=== PATIENT | female | born 1950 | race Caucasian/White ===

== ENCOUNTER 2023-10-27 11:10 | Outpatient (CLI) | payer OTHER, SELFPAY | END 2023-10-27 11:11 | disposition home or self-care (01) | PROVIDERS: PCP Family Medicine; Visit Provider Family Medicine | DX: E10.9 Type 1 diabetes mellitus without complications (principal); Z13.29 Encounter for screening for other suspected endocrine disorder; M54.2 Cervicalgia; Z13.21 Encounter for screening for nutritional disorder | CPT/HCPCS: 82306; 82607; 84443; 84681 ==

== ENCOUNTER 2023-12-14 09:22 | Outpatient (CLI) | payer MEDICARE, BC, SELFPAY | END 2023-12-14 09:23 | disposition home or self-care (01) | LOC: AMB 12-15 13:59 | PROVIDERS: PCP Family Medicine; Visit Provider Family Medicine | DX: E11.649 Type 2 diabetes mellitus with hypoglycemia without coma (principal); R42 Dizziness and giddiness | CPT/HCPCS: A0425; A0427 ==

== ENCOUNTER 2023-12-14 10:23 | Emergency (ER) | payer MEDICARE, BC, SELFPAY ==
[2023-12-14] VITALS (24 sets, daily range): BP systolic 93–113; BP diastolic 53–77; PULSE 64–81; RESP 18; TEMP 35.5; O2SAT 78–100; BMI 19.3
--- NOTE | 2023-12-14 10:41 | ED_ITS ---
HPI - General Adult General Date Seen: 12/14/23 Chief complaint: Diabetic Related Problem Stated complaint: Diabetic complications Time Seen by Provider: 12/14/23 10:25 Source: patient, EMS, RN notes reviewed and old records reviewed Mode of arrival: EMS Limitations: no limitations History of Present Illness HPI narrative: Is a 73-year-old whose family called EMS because she was feeling lightheaded. She does have a fairly new diagnosis of diabetes, takes Lantus in the morning and then has a p.r.n. 1-2 units of regular insulin with meals, according to review of her records. This morning she was making her oatmeal and she says she started to feel lightheaded and dizzy. Her blood sugar that time was noted to be normal at around 90 both by paramedics and by her home machine. Family called 911 immediately, they did not give her anything to drink or eat. Paramedics gave her some juice. They also noted on their arrival that her blood pressure was 53/33. This came up by the time that she was here 299 systolic, it was in the 90s for the bulk of the time in the ambulance although for the 1st 10 minutes that they were with her she has blood pressures from 53/33 to 62/43 to 65/43. She was not ever tachycardic. I do not have a rhythm strip from the ambulance but there are no reported arrhythmias. They did start D10 EN route but then stopped it when her blood sugar was 160. Patient is feeling better she says at this time. She notes that her blood pressure typically runs normal to slightly low, she does not take any blood pressure medications. She specifically denies pain such as headache, chest pain, abdominal or back pain. She denies cough or difficulty breathing, fevers, recent vomiting or diarrhea, black or bloody stools. She is under some stress at home she is taking care of her who is in hospice. Related Data Home Medications Medication Instructions Recorded Confirmed [id number] ac 400 tab PO 08/05/23 10/27/23 mcg-calcium carb 500 mg-vit K1 20 mcg tablet (Women's 50 Plus Multivitamin) Previous Rx's Medication Instructions Recorded blood-glucose meter,continuous #1 ea 08/06/23 (Dexcom G7 Drapery Cutter) insulin aspart U-100 100 unit/mL 1 - 2 unit (0.01 - 0.02 mL) subcut 11/28/23 (3 mL) subcutaneous pen (Novolog TIDWMEAL PRN Type 1 diabetes #15 mL FlexPen U-100 Insulin aspart) insulin glargine 100 unit/mL (3 6 unit (0.06 mL) subcut QAM #15 mL 10/20/23 mL) subcutaneous pen (Lantus Solostar U-100 Insulin) lancets (Accu-Chek Softclix #200 ea 10/27/23 Lancets) blood-glucose sensor (Dexcom G7 #1 ea 11/26/23 Sensor device) pen needle, diabetic 31 gauge x #100 ea 11/26/23 3/16 (BD Ultra-Fine Mini Pen Needle) Allergies Allergy/AdvReac Type Severity Reaction Status Date / Time No Known Drug Allergies Allergy Verified 10/27/23 10:44 Review of Systems Status of ROS: Reports: 10 or more systems reviewed and unremarkable except as noted in History and below PFSH PFS Surgical History Status post bunionectomy ?Z98.890 - Other specified postprocedural states (ICD-10) Status post open reduction and internal fixation (ORIF) of fracture ?Z98.890 - Other specified postprocedural states (ICD-10) ?Z87.81 - Personal history of (healed) traumatic fracture (ICD-10) Social History What is your current living situation?: declined to answer Problems where you live: declined to answer In the past 12 months, utilities in danger of being shut off: declined to answer In past 12 months, lack of transportation kept you from medical appts, meetings, work, or getting things needed for daily living: declined to answer In the past 12 mos, have been you worried that your food would run out before you had money to buy more?: declined to answer In the past 12 mos, the food you bought just didn't last and you didn't have money to buy more?: declined to answer Smoking Status: Never smoker How often does anyone, including family, friends and others, physically hurt you : decline to answer How often does anyone, including family, friends and others, insult or talk down to you: decline to answer How often does anyone, including family, friends and others, threaten you with harm: decline to answer How often does anyone, including family, friends and others, scream or curse at you: decline to answer Exam Narrative: Exam Narrative: Vital signs as noted above. In general, an alert, well-appearing patient. She looks fatigued. Head: Normocephalic, atraumatic. Eyes: Pupils are equal reactive. Extraocular movements are full. Conjunctivae are normal. ENT: Mucous membranes are moist. Throat is normal. Neck: Supple without lymphadenopathy. Heart: Regular rate and rhythm. No murmur or rub. Lungs: Clear bilaterally. No increased work of breathing, crackles or wheezes. Abdomen: Soft and nontender. No organomegaly. Extremities: Well perfused. No edema. No calf tenderness. Pulses intact. Neurologic: Patient is alert and oriented to person and place. Speech is fluent. Face is symmetric. Moves all extremities equally. Affect: Normal. Skin: Warm and dry. Well perfused. Const: Vital Signs, click to edit/add: Vital Signs - 24 hr 12/14/23 10:27 12/14/23 10:30 12/14/23 10:31 Temperature 96 F L Pulse Rate 66 66 Pulse Rate [Pulse Oximeter] 66 Respiratory Rate 18 Blood Pressure 99/64 Blood Pressure [Ri ght Upper Arm] 99/64 Blood Pressure [or thostatic sitting] Blood Pressure [or thostatic standing ] Pulse Oximetry 100 100 [facility] 12/14/23 10:41 12/14/23 10:45 12/14/23 11:00 Temperature Pulse Rate 64 68 72 Pulse Rate [Pulse Oximeter] Respiratory Rate Blood Pressure 100/58 L Blood Pressure [Ri ght Upper Arm] Blood Pressure [or thostatic sitting] Blood Pressure [or thostatic standing ] Pulse Oximetry 100 100 100 [facility] 12/14/23 11:02 12/14/23 11:02 12/14/23 11:03 Temperature Pulse Rate 68 70 Pulse Rate [Pulse Oximeter] Respiratory Rate Blood Pressure 93/53 L Blood Pressure [Ri ght Upper Arm] Blood Pressure [or thostatic sitting] Blood Pressure [or thostatic standing ] Pulse Oximetry 97 100 100 [facility] 12/14/23 11:15 12/14/23 11:21 12/14/23 11:22 Temperature Pulse Rate 70 67 71 Pulse Rate [Pulse Oximeter] Respiratory Rate Blood Pressure 104/62 Blood Pressure [Ri ght Upper Arm] Blood Pressure [or thostatic sitting] Blood Pressure [or thostatic standing ] Pulse Oximetry 100 100 100 [facility] 12/14/23 11:30 12/14/23 11:44 12/14/23 11:45 Temperature Pulse Rate 77 78 79 Pulse Rate [Pulse Oximeter] Respiratory Rate Blood Pressure 113/63 Blood Pressure [Ri ght Upper Arm] Blood Pressure [or thostatic sitting] Blood Pressure [or thostatic standing ] Pulse Oximetry 100 100 99 [facility] 12/14/23 12:00 12/14/23 12:02 12/14/23 12:15 Temperature Pulse Rate 80 81 Pulse Rate [Pulse Oximeter] Respiratory Rate Blood Pressure 93/77 Blood Pressure [Ri ght Upper Arm] Blood Pressure [or thostatic sitting] Blood Pressure [or thostatic standing ] Pulse Oximetry 78 L 100 100 Oxygen Delivery [facility] 12/14/23 12:21 12/14/23 12:30 12/14/23 12:41 Temperature Pulse Rate 79 76 74 Pulse Rate [Pulse Oximeter] Respiratory Rate Blood Pressure 96/57 L 108/63 Blood Pressure [Ri ght Upper Arm] Blood Pressure [or thostatic sitting] Blood Pressure [or thostatic standing ] Pulse Oximetry 100 98 99 Oxygen Delivery [facility] 12/14/23 12:45 12/14/23 13:00 12/14/23 13:01 Temperature Pulse Rate 76 72 74 Pulse Rate [Pulse Oximeter] Respiratory Rate Blood Pressure 100/54 L Blood Pressure [Ri ght Upper Arm] Blood Pressure [or thostatic sitting] Blood Pressure [or thostatic standing ] Pulse Oximetry 96 100 100 [facility] 12/14/23 13:32 Temperature Pulse Rate Pulse Rate [Pulse Oximeter] Respiratory Rate Blood Pressure Blood Pressure [Ri ght Upper Arm] Blood Pressure [or thostatic sitting] 108/56 L Blood Pressure [or thostatic standing ] 96/58 L Pulse Oximetry [facility] Course Course ED Course: Patient presents with lightheadedness without syncope in the setting of significantly low blood pressures initially. These have largely improved without treatment. Diagnostic considerations include infection or sepsis, arrhythmia, anemia, vasovagal spell, among others. EKG and labs pending at this time. Will give a L of normal saline and have her eat some breakfast although I do not believe any of this is related to hypoglycemia. Patient had a total of 2 L of normal saline, blood pressure improved to about 110 systolic. Orthostatics were negative, after fluids. She was ambulatory to the bathroom without difficulty. Labs are notable for a mildly depressed white blood cell count of 4 with a normal diff. Hemoglobin is 13.4. An EKG showed a normal sinus rhythm with a ventricular rate of 69. No acute ST segment changes. Corrected QT is 456 milliseconds. NM is normal. A troponin was negative. Other labs most notable for a lactate initially of 4.2. Her metabolic panel was unremarkable, sodium was mildly low at 131. Blood sugar was 195. LFTs notable for a bilirubin of 2 but otherwise entirely normal, CRP was less than 0.5. Urinalysis was negative aside from trace glucose. No ketones. COVID, influenza and RSV are negative. At this time, I have episode of lightheadedness associated with low blood pressures which has resolved. Lactate is elevated but there are no other markers for infection including absence of symptoms, fever, elevated white blood cell count, tachycardia etcetera. She does note that she is under significant stress, feels she is likely dehydrated. There is no evidence of ketoacidosis. I do not have evidence of cardiac arrhythmia or other signs of cardiogenic shock. At this time she is feeling well, blood pressure is normal. I think for now it is reasonable to send her home. Blood cultures have been sent. Advised her that if she is feeling worse in any way, develops fevers, chills, further lightheadedness or fainting, or any other symptoms of infection, she should return to the emergency department for re-evaluation right away. Otherwise will have her follow up with primary care. Vital Signs Vital signs: Initial Vital Signs Temperature 96 F L 12/14/23 10:27 Temperature Source Temporal Artery Scan 12/14/23 10:27 Pulse Rate 66 12/14/23 10:27 Respiratory Rate 18 12/14/23 10:27 Blood Pressure 99/64 12/14/23 10:27 Blood Pressure Mean 75 12/14/23 10:27 Blood Pressure Position Supine 12/14/23 10:27 Pulse Oximetry 100 12/14/23 10:27 Oxygen Delivery Method Room Air 12/14/23 10:27 Vital Signs Temperature 96 F L 12/14/23 10:27 Pulse Rate 66 12/14/23 10:27 Respiratory Rate 18 12/14/23 10:27 Blood Pressure 99/64 12/14/23 10:27 Pulse Oximetry 100 12/14/23 10:27 Oxygen Delivery Method Room Air 12/14/23 10:27 Temperature 96 F L 12/14/23 10:27 Pulse Rate 74 12/14/23 13:01 Respiratory Rate 18 12/14/23 10:27 Blood Pressure 108/56 L 12/14/23 13:32 Pulse Oximetry 100 12/14/23 13:01 Oxygen Delivery Method Room Air 12/14/23 10:27 Medications Administered Medications: Discontinued Medications Generic Name Dose Route Start Last Admin Trade Name Freq PRN Reason Stop Dose Admin Sodium Chloride 1,000 mls @ 1,000 mls/hr 12/14/23 10:45 12/14/23 11:37 0.9 % Sodium Chloride 1000 Ml IV 12/14/23 11:44 Infused .Q1H AMANDA Infusion Sodium Chloride 1,000 mls @ 1,000 mls/hr 12/14/23 11:15 12/14/23 12:21 0.9 % Sodium Chloride 1000 Ml IV 12/14/23 12:14 Infused .Q1H AMANDA Infusion Medical Decision Making Lab Data Labs: Lab Results 12/14/23 12/14/23 12/14/23 Range/Units 10:50 11:25 12:13 WBC 4.05 L (4.50-11.00) K/uL RBC 4.48 (4.00-5.20) m/uL Hgb 13.4 (12.0-16.0) gm/dL Hct 41.2 (33.0-51.0) % MCV 92 (80-100) fL MCH 30 (26-34) pg MCHC 33 (32-36) gm/dL RDW Coeff of Carlita 13.0 (11.5-15.5) % Plt Count 176 (140-440) K/uL Neut % (Auto) 62.8 (42.0-72.0) % Lymph % (Auto) 28.1 (20-44) % [place] % (Auto) 7.7 (0.0-11.0) % Eos % (Auto) 0.7 (0.0-7.0) % Baso % (Auto) 0.7 (0.0-3.0) % Neut # (Auto) 2.50 (1.7-7.0) K/uL Lymph # (Auto) 1.10 (0.90-2.90) K/uL [place] # (Auto) 0.30 (0.00-0.90) K/UL Eos # (Auto) 0.00 (0.00-0.50) K/uL Baso # (Auto) 0.00 (0.00-0.30) K/uL Abs Immat Gran (auto) 0.00 (0.00-0.30) K/uL Imm/Tot Granulo (auto) 0.0 % Sodium 131 L (135-149) mmol/L Potassium 4.2 (3.6-5.1) mmol/L Chloride 99 (96-114) mmol/L Carbon Dioxide 21 (20-32) mmol/L Anion Gap 11 (7-15) mEq/L BUN 7 (7-30) mg/dL Creatinine 0.6 (0.5-1.5) mg/dL Estimated Creat Clear 40.27 Estimated GFR 96 ml/min Glucose 195 H (60-115) mg/dL Lactate 4.2 H* (0.5-1.9) mmol/L Calcium 9.0 (8.4-10.6) mg/dL Total Bilirubin 2.0 H (0.1-1.5) mg/dL Direct Bilirubin 0.0 (0.0-0.5) mg/dL AST 35 (12-35) U/L ALT 28 (4-35) U/L Alkaline Phosphatase 50 (40-150) U/L C-Reactive Protein < 0.5 L (0.5-1.0) mg/dL Total Protein 7.0 (6.0-8.3) g/dL Albumin 4.2 (3.3-5.0) g/dL Urine Color Yellow (Yellow) Urine Appearance Clear (Clear) Urine pH 7.5 (5.0-8.5) Ur Specific [place] 1.015 (1.000-1.030) Urine Protein Negative (Negative) Urine Glucose (UA) Trace A (Negative) Urine Ketones Negative (Negative) Urine Blood Negative (Negative) Urine Nitrite Negative (Negative) Urine Bilirubin Negative (Negative) Urine Urobilinogen 0.2 (0.2-1.0) Ur Leukocyte Esterase Negative (Negative) Urine RBC 0-2 (0-2) Urine WBC 0-2 (0-5) Ur Squamous Epith Cells Few (None-Few) Urine Bacteria None (None) SARS-CoV-2 (PCR) Negative SARS-CoV-2 (Negative) Influenza Type A (PCR) Negative PCR FLU A (Negative) Influenza Type B (PCR) Negative PCR FLU B (Negative) RSV (PCR) Negative PCR RSV (Negative) POC Troponin I 0.00 L (0.01-0.04) ng/ml 12/14/23 Range/Units 12:58 WBC (4.50-11.00) K/uL RBC (4.00-5.20) m/uL Hgb (12.0-16.0) gm/dL Hct (33.0-51.0) % MCV (80-100) fL MCH (26-34) pg MCHC (32-36) gm/dL RDW Coeff of Carlita (11.5-15.5) % Plt Count (140-440) K/uL Neut % (Auto) (42.0-72.0) % Lymph % (Auto) (20-44) % [place] % (Auto) (0.0-11.0) % Eos % (Auto) (0.0-7.0) % Baso % (Auto) (0.0-3.0) % Neut # (Auto) (1.7-7.0) K/uL Lymph # (Auto) (0.90-2.90) K/uL [place] # (Auto) (0.00-0.90) K/UL Eos # (Auto) (0.00-0.50) K/uL Baso # (Auto) (0.00-0.30) K/uL Abs Immat Gran (auto) (0.00-0.30) K/uL Imm/Tot Granulo (auto) % Sodium (135-149) mmol/L Potassium (3.6-5.1) mmol/L Chloride (96-114) mmol/L Carbon Dioxide (20-32) mmol/L Anion Gap (7-15) mEq/L BUN (7-30) mg/dL Creatinine (0.5-1.5) mg/dL Estimated Creat Clear Estimated GFR ml/min Glucose (60-115) mg/dL Lactate 2.8 H (0.5-1.9) mmol/L Calcium (8.4-10.6) mg/dL Total Bilirubin (0.1-1.5) mg/dL Direct Bilirubin (0.0-0.5) mg/dL AST (12-35) U/L ALT (4-35) U/L Alkaline Phosphatase (40-150) U/L C-Reactive Protein (0.5-1.0) mg/dL Total Protein (6.0-8.3) g/dL Albumin (3.3-5.0) g/dL Urine Color (Yellow) Urine Appearance (Clear) Urine pH (5.0-8.5) Ur Specific [place] (1.000-1.030) Urine Protein (Negative) Urine Glucose (UA) (Negative) Urine Ketones (Negative) Urine Blood (Negative) Urine Nitrite (Negative) Urine Bilirubin (Negative) Urine Urobilinogen (0.2-1.0) Ur Leukocyte Esterase (Negative) Urine RBC (0-2) Urine WBC (0-5) Ur Squamous Epith Cells (None-Few) Urine Bacteria (None) SARS-CoV-2 (PCR) (Negative) Influenza Type A (PCR) (Negative) Influenza Type B (PCR) (Negative) RSV (PCR) (Negative) POC Troponin I (0.01-0.04) ng/ml Discharge Plan Discharge Clinical Impression: Hypotension Patient Disposition: Home, Self-Care Condition: Improved Instructions: Lightheadedness (ED) Additional Instructions: For any new symptoms such as fever, cough, difficulty breathing, vomiting, further lightheadedness, fainting etcetera, return to the emergency department for re-evaluation at any time. See your primary doctor in the next week for recheck. Prescriptions: No Action Women's 50 Plus Multivitamin 400 mcg-500 mg calcium-20 mcg tablet PO (DME) Dexcom G7 Drapery Cutter Misc See Rx Instructions .Route Qty: 1 0RF Rx Instructions: As directed insulin aspart U-100 [Novolog FlexPen U-100 Insulin] 100 unit/mL (3 mL) insulin pen 1 - 2 unit subcut TIDWMEAL PRN (Reason: Type 1 diabetes) Qty: 15 3RF Rx Instructions: Please dispense brand covered by insurance. insulin glargine [Lantus Solostar U-100 Insulin] 100 unit/mL (3 mL) insulin pen 6 unit subcut QAM Qty: 15 3RF Rx Instructions: Please dispense brand covered by insurance. (DME) lancets [Accu-Chek Softclix Lancets] Misc See Rx Instructions .Route Qty: 200 3RF Rx Instructions: To test blood sugars 4x daily (DME) Dexcom G7 Sensor Device See Rx Instructions .Route Qty: 1 12RF Rx Instructions: As directed (DME) pen needle, diabetic [BD Ultra-Fine Mini Pen Needle] 31 gauge x 3/16 needle See Rx Instructions .Route Qty: 100 12RF Rx Instructions: Use for insulin administration QID Follow Up/Referrals: Amadou Trammell MD [Primary Care Provider] - Stand Alone [facility] Info Inst[facility]
[2023-12-14] MEDS: 0.9 % SODIUM CHLORIDE 1000 ml 1,000 ML IV ×2 (10:48→11:25)
[2023-12-14 11:04] LABS: Lactate Sepsis w/Reflex* 4.2 mmol/L (0.5-1.9)
[2023-12-14 11:05] LABS: Basophils Percent Auto 0.7 % (0.0-3.0); Eosinophils Percent Auto 0.7 % (0.0-7.0); Hematocrit 41.2 % (33.0-51.0); Hemoglobin* 13.4 gm/dL (12.0-16.0); Lymphocytes Percent Auto 28.1 % (20-44); Mean Corpuscular HGB Conc 33 gm/dL (32-36); Mean Corpuscular Hemoglobin 30 pg (26-34); Mean Corpuscular Volume 92 fL (80-100); Monocytes Percent Auto 7.7 % (0.0-11.0); Neutrophils Percent Auto 62.8 % (42.0-72.0); Platelet Count* 176 K/uL (140-440); Red Blood Count 4.48 m/uL (4.00-5.20); White Blood Count* 4.05 K/uL (4.50-11.00)
[2023-12-14 11:07] LABS: Slide Review Reflex No
[2023-12-14 11:21] LABS: Albumin* 4.2 g/dL (3.3-5.0)
[2023-12-14 11:24] LABS: Alanine Aminotransferase* 28 U/L (4-35); Alkaline Phosphatase* 50 U/L (40-150); Aspartate Amino Transferase* 35 U/L (12-35); Chloride* 99 mmol/L (96-114)
[2023-12-14 11:25] LABS: Potassium* 4.2 mmol/L (3.6-5.1); Sodium* 131 mmol/L (135-149)
[2023-12-14 11:27] LABS: Creatinine* 0.6 mg/dL (0.5-1.5); Est. Creatinine Clearance* 40.27; Estimated Glomerular Filt Rate 96 ml/min
[2023-12-14 11:28] LABS: Anion Gap 11 mEq/L (7-15); Blood Urea Nitrogen* 7 mg/dL (7-30); Carbon Dioxide* 21 mmol/L (20-32); Glucose* 195 mg/dL (60-115)
[2023-12-14 11:30] LABS: C Reactive Protein* < 0.5 mg/dL (0.5-1.0)
[2023-12-14 12:12] LABS: PCR FLU A Negative PCR FLU A (Negative); PCR FLU B Negative PCR FLU B (Negative); PCR RSV Negative PCR RSV (Negative); SARS PCR* Negative SARS-CoV-2 (Negative)
[2023-12-14 12:18] LABS: Appearance Urine Clear (Clear); Bilirubin Urine Negative (Negative); Blood Urine Negative (Negative); Color Urine Yellow (Yellow); Glucose Urine Trace (Negative); Ketones Urine Negative (Negative); Leukocyte Esterase Urine Negative (Negative); Nitrite Urine Negative (Negative); Protein Urine Negative (Negative); Specific Gravity Urine 1.015 (1.000-1.030); Urobilinogen Urine 0.2 (0.2-1.0); pH Urine 7.5 (5.0-8.5)
[2023-12-14 12:39] LABS: RBC Urine 0-2 (0-2); Squamous Epithelial Cell Urine Few (None-Few); WBC Urine 0-2 (0-5)
[2023-12-14 13:06] LABS: Lactate Sepsis 2 Hour 2.8 mmol/L (0.5-1.9)
== END 2023-12-14 14:32 | disposition home or self-care (01) ==
PROVIDERS: Emergency Provider Emergency Medicine; PCP Family Medicine
DX: I95.9 Hypotension, unspecified (principal)
CPT/HCPCS: 36415; 80048; 80076; 81001; 83605; 84484; 85025; 86140; 87040; 87631; 93005; 94761; 96360; 99284; J7030

== ENCOUNTER 2024-02-12 09:36 | Outpatient (CLI) | payer MEDICARE, BC, SELFPAY | END 2024-02-12 09:37 | disposition home or self-care (01) | LOC: LKVREF 09:37 | PROVIDERS: PCP Family Medicine; Visit Provider Family Medicine | DX: E10.9 Type 1 diabetes mellitus without complications (principal) | CPT/HCPCS: 84681 ==

== ENCOUNTER 2025-03-17 08:25 | Outpatient (CLI) | payer MEDICARE, BC, SELFPAY | END 2025-03-17 08:26 | disposition home or self-care (01) | LOC: LKVREF 08:26 | PROVIDERS: PCP Family Medicine; Visit Provider Family Medicine | DX: E10.9 Type 1 diabetes mellitus without complications (principal) | CPT/HCPCS: 80061 ==